=== PATIENT | female | born 2000 | race Caucasian/White ===

== ENCOUNTER 2022-03-14 10:59 | Emergency (ER) | payer OTHER ==
[~2022-03-14 10:59] MED LIST: BENTYL 20MG TAB20 MG PO; COLACE 100MG C100 MG PO; KEFLEX CAP 500500 MG PO; MACROBID 100 M100 MG PO; MIRALAX17 GM PO; OMNICEF 300 MG300 MG PO; PRENATAL VITAM1 EAC5 PO; PRENATAL VITAM1 EAC6 PO; PRENATAL VITAM1 EAC8 PO; REGLAN10 MG PO; ZOFRAN 4 MG TAB4 MG PO
[2022-03-14 11:41] LABS: HEMOGLOBIN 13.8 gm/dl (12.3-15.3); RED BLOOD COUNT 4.68 M/UL (4.00-5.10); WHITE BLOOD COUNT 8.1 K/UL (4.5-11.0)
[2022-03-14 11:46] LABS: BUN/CREATININE RATIO 18 (0-10)
[2022-03-14] MEDS ORDERED: PROTONIX40 MG PO (13:14)
[2022-03-14] MEDS ORDERED: TORADOL 10 MG T10 MG PO (13:14)
== END 2022-03-14 13:28 | disposition home or self-care (01) ==
LOC: ER1 10:59
DX: K80.20 Calculus of gallbladder without cholecystitis without obstruction (principal); K21.9 Gastro-esophageal reflux disease without esophagitis
CPT/HCPCS: 80053; 81001; 83690; 84703; 85025; 96361; 96374; 96375; 99284; C9113; J1885; J2405; J7030